=== PATIENT | male | born 1990 | race Caucasian/White ===

== ENCOUNTER → 2016-11-10 | Outpatient (CLI) | payer OTHER ==
[~2016-11-10] MED LIST: FLUMAZENIL 0.5 MG/5 ML MDV IVP ONE; LIDOCAINE 1% 300 MG/30 ML SDV ONE; MIDAZOLAM 2 MG/2 ML VIAL ONE; NALOXONE HCL 0.4 MG/ML INJ ONE; NS 1,000 ML IV SCH; ONDANSETRON 4 MG/2 ML VIAL IVP PRN; ONDANSETRON 4 MG/2 ML VIAL ONE; fentaNYL 100 MCG/2 ML INJ ONE; oxyCODONE IR 5 MG TAB PO PRN
== END ==
LOC: FIMAGING 08:11
PROVIDERS: ATTEND Internal Medicine
PROC: 0FB13ZX Excision of Right Lobe Liver, Percutaneous Approach, Diagnostic (ICD-10-PCS; principal; 2016-11-10 10:50)
DX: K75.81 Nonalcoholic steatohepatitis (NASH) (principal); R74.0 Nonspecific elevation of levels of transaminase and lactic acid dehydrogenase [LDH]
CPT/HCPCS: J2250; J2310; J2405; J3010

== ENCOUNTER 2018-08-07 11:05 | Emergency (ER) | payer OTHER ==
--- NOTE | 2018-08-07 11:10 | EDPHY ---
H & P Stated Complaint: abd pain Time Seen by Provider: 08/07/18 11:10 - Personal History Current Tetanus/Diphtheria Vaccine: Yes - Medical/Surgical History Hx Asthma: No Hx Chronic Respiratory Disease: No Hx Diabetes: No Hx Cardiac Disease: No Hx Renal Disease: No Hx Cirrhosis: No Hx Alcoholism: No Other PMH: Denies - Social History Smoking Status: Never smoked Constitutional: Initial Vital Signs Temperature (C) 36.6 C 08/07/18 11:07 Heart Rate 88 08/07/18 11:07 Respiratory Rate 18 08/07/18 11:07 Blood Pressure 130/60 H 08/07/18 11:07 O2 Sat (%) 96 08/07/18 11:07 O2 Delivery Mode Room Air Allergies/Adverse Reactions: No Known Allergies Allergy (Unverified 08/07/18 11:09) Home Medications: Medication Instructions Recorded Nortriptyline HCl 40 mg PO DAILY 10/30/16 Hydrocodone/APAP 5/325 [Sloan 1 - 2 each PO Q4-6PRN PRN #20 tab 08/07/18 5/325] Ibuprofen [Motrin] 800 mg PO Q8 #20 tab 08/07/18 Medical Decision Making - Diagnostics Imaging Results: Imaging Impressions Abdomen CT 08/07/18 11:21 Impression: 1. No acute findings in the abdomen or pelvis. 2. Fatty liver. 3. Additional findings as above. Imaging: Discussed imaging studies w/ call out operator Radiologist, I viewed and interpreted images myself ED Course/Re-evaluation: CHIEF COMPLAINT: Abdominal pain HISTORY OF PRESENT ILLNESS: The patient is a 28 y/o male with a history of non-alcoholic fatty liver infiltrate complaining of left upper abdominal pain onset 3 days ago. For the past three years he has had this abdominal pain every 3 months. However, since 3 days ago, the pain has been consistent. He saw his PCP yesterday, who advised that the patient present to the emergency department if his symptoms did not improve. His last bowel movement was 2 days ago. No fever, headache, body aches , lightheadedness, chest pain, heart palpitations, shortness of breath, cough, abdominal pain, urinary or bowel complaints, numbness, paresthesias. REVIEW OF SYSTEMS: A comprehensive 10 system review of systems is otherwise negative aside from elements mentioned in the history of present illness and medical decision making. PHYSICAL EXAM: HR, BP, O2 Sat, RR. Temp noted General Appearance: Alert, well hydrated, appropriate, and non-toxic appearing. Head: Atraumatic without scalp tenderness or obvious injury Eyes: Pupils equal, round, reactive to light and accommodation, EOMI, no trauma , no injection. Ears: Clear bilaterally, no perforation, normal landmarks Nose: Atraumatic, no rhinorrhea, clear. Throat: There is no erythema or exudates, no lesions, normal tonsils, mucus membranes moist. Neck: Supple, 2+ carotid upstroke, nontender, no lymphadenopathy. Respiratory: No retractions, no distress, no wheezes, and no accessory muscle use. Lungs are clear to auscultation bilaterally. Cardiovascular: Regular rate and rhythm, no murmurs, rubs, or gallops. Bilateral carotid, radial, dorsalis pedis, and posterior tibial pulses intact. Good capillary refill all extremities. Gastrointestinal: Positive McBurney's point. Abdomen is soft, non-distended, no masses, no rebound, no guarding, no peritoneal signs. Musculoskeletal: Normal active ROM of all extremities, atraumatic. Neurological: Alert, appropriate, and interactive. The patient has normal DTRs and non-focal cranial nerves, motor, sensory, and cerebellar exam. Skin: No rashes, good turgor, no nodules on palpation. Past medical history: Non-alcoholic fatty liver infiltrate Past surgical history: Denies Family history: Denies Social history: Mother at bedside, lives in [place], employed DIAGNOSTICS/PROCEDURES/CRITICAL CARE TIME: Abdominopelvic CT: No acute findings. Fatty liver disease. DIFFERENTIAL DIAGNOSIS: The differential diagnosis for the patient's abdominal pain included but was not limited to appendicitis, cholecystitis, hernias, testicular torsion, gastritis, and urinary tract infection. MEDICAL DECISION MAKING: The patient is a 28 y/o male with a history of non-alcoholic fatty liver infiltrate presenting with left upper abdominal pain onset 3 days ago. For the past three years he has had this abdominal pain every 3 months. However, since 3 days ago, the pain has been consistent. On exam he has positive McBurney's point, but no other significant findings. Labs and abdominopelvic CT ordered; 1L IV NS, 30mg IV Toradol, and 4mg IV Zofran administered. 1220: I spoke with Dr. Hernandez, radiologist, there are no acute findings on the abdominopelvic CT. The patient does have fatty liver disease. Patient's labs are also unremarkable. 1225: Reassessed patient and discussed laboratory and imaging findings. I have advised him to follow up with a sports medicine trainer and take Sloan and Motrin as prescribed. Return precautions provided; patient is comfortable with this plan. - Data Points Laboratory Results: Laboratory Results 08/07/18 11:20 08/07/18 11:20 08/07/18 08/07/18 08/07/18 11:25 11:20 11:20 WBC RBC Hgb POC Hgb 16.0 gm/dL gm/dL (13.7-17.5) Hct POC Hct 47 % % (40-51) MCV MCH MCHC RDW Plt Count MPV Neut % (Auto) Lymph % (Auto) Throckmorton % (Auto) Eos % (Auto) Baso % (Auto) Nucleat RBC Rel Count Absolute Neuts (auto) Absolute Lymphs (auto) Absolute Monos (auto) Absolute Eos (auto) Absolute Basos (auto) Absolute Nucleated RBC Immature Gran % Immature Gran # PT 12.5 SEC SEC (12.0-15.0) INR 0.97 (0.83-1.16) APTT 26.6 SEC SEC (23.0-38.0) POC Sodium 144 mEq/L mEq/L (135-145) Sodium 140 mEq/L mEq/L (135-145) POC Potassium 3.8 mEq/L mEq/L (3.3-5.0) Potassium 4.2 mEq/L mEq/L (3.5-5.2) POC Chloride 106 mEq/L mEq/L (97-110) Chloride 106 mEq/L mEq/L (97-110) Carbon Dioxide 24 mEq/l mEq/l (22-31) POC Total CO2 24 mEq/L mEq/L (22-31) Anion Gap 10 mEq/L mEq/L (6-14) POC BUN 15 mg/dL mg/dL (7-23) BUN 16 mg/dL mg/dL (7-23) Creatinine 0.9 mg/dL mg/dL (0.7-1.3) POC Creatinine 0.9 mg/dL mg/dL (0.7-1.3) Estimated GFR > 60 Glucose 83 mg/dL mg/dL (70-100) POC Glucose 86 mg/dL mg/dL (70-100) Calcium 9.9 mg/dL mg/dL (8.5-10.4) Total Bilirubin 2.6 mg/dL H mg/dL (0.1-1.4) Conjugated Bilirubin 0.2 mg/dL mg/dL (0.0-0.5) Unconjugated Bilirubin 2.4 mg/dL H mg/dL (0.0-1.1) AST 56 IU/L IU/L (17-59) ALT 148 IU/L H IU/L (21-72) Alkaline Phosphatase 63 IU/L IU/L (38-126) Total Protein 7.5 g/dL g/dL (6.3-8.2) Albumin 4.9 g/dL g/dL (3.5-5.0) Lipase 140 IU/L IU/L (23-300) 08/07/18 11:20 WBC 4.31 10^3/uL 10^3/uL (3.80-9.50) RBC 5.57 10^6/uL 10^6/uL (4.40-6.38) Hgb 15.7 g/dL g/dL (13.7-17.5) POC Hgb Hct 47.2 % % (40.0-51.0) POC Hct MCV 84.7 fL fL (81.5-99.8) MCH 28.2 pg pg (27.9-34.1) MCHC 33.3 g/dL g/dL (32.4-36.7) RDW 12.7 % % (11.5-15.2) Plt Count 192 10^3/uL 10^3/uL (150-400) MPV 10.5 fL fL (8.7-11.7) Neut % (Auto) 54.3 % % (39.3-74.2) Lymph % (Auto) 35.7 % % (15.0-45.0) Throckmorton % (Auto) 8.4 % % (4.5-13.0) Eos % (Auto) 0.9 % % (0.6-7.6) Baso % (Auto) 0.5 % % (0.3-1.7) Nucleat RBC Rel Count 0.0 % % (0.0-0.2) Absolute Neuts (auto) 2.34 10^3/uL 10^3/uL (1.70-6.50) Absolute Lymphs (auto) 1.54 10^3/uL 10^3/uL (1.00-3.00) Absolute Monos (auto) 0.36 10^3/uL 10^3/uL (0.30-0.80) Absolute Eos (auto) 0.04 10^3/uL 10^3/uL (0.03-0.40) Absolute Basos (auto) 0.02 10^3/uL 10^3/uL (0.02-0.10) Absolute Nucleated RBC 0.00 10^3/uL 10^3/uL (0-0.01) Immature Gran % 0.2 % % (0.0-1.1) Immature Gran # 0.01 10^3/uL 10^3/uL (0.00-0.10) PT INR APTT POC Sodium Sodium POC Potassium Potassium POC Chloride Chloride Carbon Dioxide POC Total CO2 Anion Gap POC BUN BUN Creatinine POC Creatinine Estimated GFR Glucose POC Glucose Calcium Total Bilirubin Conjugated Bilirubin Unconjugated Bilirubin AST ALT Alkaline Phosphatase Total Protein Albumin Lipase Medications Given: Discontinued Medications Sodium Chloride (Ns) 1,000 mls @ 0 mls/hr IV EDNOW ONE; Wide Open PRN Reason: Protocol Stop: 08/07/18 11:18 Last Admin: 08/07/18 11:26 Dose: 1,000 mls Ketorolac Tromethamine (Toradol) 30 mg IVP EDNOW ONE Stop: 08/07/18 11:18 Last Admin: 08/07/18 11:26 Dose: 30 mg Ondansetron HCl (Zofran) 4 mg IVP EDNOW ONE Stop: 08/07/18 11:18 Last Admin: 08/07/18 11:26 Dose: 4 mg Point of Care Test Results: Chemistry 08/07/18 11:25 POC Sodium 144 mEq/L mEq/L (135-145) POC Potassium 3.8 mEq/L mEq/L (3.3-5.0) POC Chloride 106 mEq/L mEq/L (97-110) POC Total CO2 24 mEq/L mEq/L (22-31) POC BUN 15 mg/dL mg/dL (7-23) POC Creatinine 0.9 mg/dL mg/dL (0.7-1.3) POC Glucose 86 mg/dL mg/dL (70-100) ISTAT H&H 08/07/18 11:25 POC Hgb 16.0 gm/dL gm/dL (13.7-17.5) POC Hct 47 % % (40-51) Departure - Departure Disposition: Home, Routine, Self-Care Clinical Impression: Fatty liver disease, nonalcoholic Abdominal pain Qualifiers: Abdominal location: right lower quadrant Qualified Code(s): R10.31 - Right lower quadrant pain Condition: Good Instructions: Hydrocodone/Acetaminophen (By mouth), Acute Abdominal Pain (ED), Non-Alcoholic Fatty Liver Disease (ED) Additional Instructions: 1. Follow-up with your primary doctor or sports medicine trainer within 72 hours. 2. Return to the Emergency Department for fever, chest pain, shortness of breath , increasing pain or other worsening of condition. Referrals: Trudi Otero MD [Primary Care Provider] - As per Instructions Jeronimo Ferrer MD [Medical Doctor] - As per Instructions Prescriptions: Hydrocodone/APAP 5/325 [Sloan 5/325] 1 - 2 each PO Q4-6PRN PRN #20 tab PRN Reason: Pain, Moderate Ibuprofen [Motrin] 800 mg PO Q8 #20 tab Report Scribed for: Chidi Griffin Report Scribed by: Fatoumata Leiva Date of Report: 08/07/18 Time of Report: 11:13
[2018-08-07] MEDS ORDERED: NS 1,000 ML IV ONE (11:17)
[2018-08-07] MEDS ORDERED: KETOROLAC 30 MG/1 ML SDV IVP ONE (11:17)
[2018-08-07] MEDS ORDERED: ONDANSETRON 4 MG/2 ML VIAL IVP ONE (11:17)
[2018-08-07 11:37] LABS: PLATELET COUNT 192 10^3/uL (150-400)
[2018-08-07] MEDS ORDERED: IOPAMIDOL (ISOVUE-300) 100 ML BTL ONE (11:42)
[2018-08-07 11:48] LABS: INR 0.97 (0.83-1.16); PROTIME(PATIENT) 12.5 SEC (12.0-15.0)
[2018-08-07 12:30] VITALS: BP 121/71
== END 2018-08-07 12:40 | disposition home or self-care (01) ==
DX: K76.0 Fatty (change of) liver, not elsewhere classified (principal); E86.9 Volume depletion, unspecified
CPT/HCPCS: 82435-PO; 82565-PO; 82947-PO; 84132-PO; 84295-PO; 84520-PO; 85014-ER; 96374; J1885; J2405; Q9967

== ENCOUNTER → 2018-08-19 | Outpatient (CLI) | payer OTHER | LOC: FIMAGING 07:54 | PROVIDERS: ATTEND Internal Medicine | DX: K76.0 Fatty (change of) liver, not elsewhere classified (principal); R10.11 Right upper quadrant pain ==